=== PATIENT | female | born 1995 | race Caucasian/White ===

== ENCOUNTER 2017-10-15 14:22 | Emergency (ER) | payer MEDICAID ==
[2017-10-15] MEDS ORDERED: Sodium Chloride 0.9% 10 ML Syringe FLUSH PRN (15:29)
[2017-10-15] MEDS ORDERED: Sodium Chloride 0.9% 1,000 ML IV ONE (15:29)
[2017-10-15] MEDS ORDERED: Ondansetron 4 MG/2 ML SDV IVPUSH ONE (15:29)
[2017-10-15] MEDS ORDERED: Morphine 2 MG/ML Syringe IVPUSH ONE ×3 (15:29→17:05)
[2017-10-15] MEDS ORDERED: Sodium Chloride 0.9% 2.5 ML Syringe FLUSH PRN (15:29)
--- NOTE | 2017-10-15 15:33 | EDM.PDOC ---
ED HPI GENERAL MEDICAL PROBLEM - General Chief Complaint: Abdominal Pain Stated Complaint: ABDOMINAL PAIN Time Seen by Provider: 10/15/17 15:21 - History of Present Illness INITIAL COMMENTS - FREE TEXT/NARRATIVE: HISTORY AND PHYSICAL: History of present illness: The patient is a 22-year-old female with no GI or history and no abdominal surgical history who presents with upper abdominal pain associated with vomiting that started last evening and woke her from sleep. Patient says she had a normal day yesterday and ate at [employer] last evening she has no ill contacts. She says she was asleep when she woke with the discomfort and the nausea and has been vomiting since. Initially she had retching and now she is only vomiting small amounts of fluid. She is trying to take sips of water and cannot tolerate. She has had no diarrhea and normally has regular bowel movements. She had a temperature of 99 with the start of the symptoms but no other fever since that time and not coughing chest pain or shortness of breath. She says she has had right-sided flank and lower back pain for one week but no specific urinary complaints or hematuria. She has had no trauma to her back. Patient says she feels very thirsty but is afraid to try anything due to the retching and she has not taken any [id number] meds to help with the symptoms. Patient says she has irregular periods which is not new for her. She has not had any vomiting of bile black or bloody vomitus and no black or bloody stools recently. Review of systems: As per history of present illness and below otherwise all systems reviewed and negative. Past medical history: As per history of present illness and as reviewed below otherwise noncontributory. Surgical history: As per history of present illness and as reviewed below otherwise noncontributory. Social history: No reported history of drug or alcohol abuse. Family history: As per history of present illness and as reviewed below otherwise noncontributory. Physical exam: General: Well-developed well-nourished overweight female who is nontoxic and has small amount of fluid in emesis basin which is not black or bloody. HEENT: Atraumatic, normocephalic, pupils reactive, negative for conjunctival pallor or scleral icterus, mucous membranes tacky throat clear, neck supple, nontender, trachea midline. There is some punctate petechiae around the patient' s eyes bilaterally which she says started after the vomiting Lungs: Clear to auscultation, breath sounds equal bilaterally, chest nontender. Heart: S1S2, regular, negative for clicks, rubs, or JVD. Abdomen: Soft, nondistended, mild upper abdominal tenderness without localization right or left and there is no rebound or guarding. Bowel sounds are hypoactive Negative for masses or hepatosplenomegaly. Negative for costovertebral tenderness. Pelvis: Stable nontender. Genitourinary: Deferred. Rectal: Deferred. Extremities: Atraumatic, negative for cords or calf pain. Neurovascular unremarkable. Neuro: Awake, alert, oriented. Cranial nerves II through XII unremarkable. Cerebellum unremarkable. Motor and sensory unremarkable throughout. Exam nonfocal. Diagnostics: CBC CMP amylase lipase hCG UA urine culture CT scan of the abdomen and pelvis Therapeutics: IV, IV fluids Zofran and morphine 1720: Case was discussed with GI on-call at [facility] Dr. Barrientos as well as with the ER physician Dr. Oliveira; although they're capable of accepting this patient they do not have bed availability INR on diversion. We also have no beds available in our hospital so I will contact [facility] in [place]. I discussed the situation as well as all testing results and diagnosis with the patient and she is aware of need for transfer. 1735: Case was discussed with the hospitalist at [facility] in [place], Dr. Moreno, who accepts the patient for transfer. We will arrange for transportation. I will hang maintenance IV fluids Impression: Acute pancreatitis rule out choledocholithiasis Definitive disposition and diagnosis as appropriate pending reevaluation and review of above. Abdomen Pain Score (Numeric/FACES): 8 - Related Data Allergies Allergy/AdvReac Type Severity Reaction Status Date / Time No Known Allergies Allergy Verified 10/15/17 14:42 Home Meds: Home Meds . [No Known Home Meds] 10/15/17 [History] Past Medical History - Past Health History Medical/Surgical History: Denies Medical/Surgical History - Infectious Disease History Infectious Disease History: Reports: None Social & Family History - Family History Family Medical History: Noncontributory - Tobacco Use Smoking Status *Q: Never Smoker - Caffeine Use Caffeine Use: Reports: Coffee, Soda - Recreational Drug Use Recreational Drug Use: No ED ROS GENERAL - Review of Systems Review Of Systems: ROS reveals no pertinent complaints other than HPI. ED EXAM, GENERAL - Physical Exam Exam: See Below (See dictation) Course - Vital Signs Last Recorded V/S: Last Vital Signs Temp 36.6 C 10/15/17 14:42 Pulse 90 10/15/17 14:42 Resp 16 10/15/17 14:42 BP 125/76 10/15/17 14:42 Pulse Ox 95 10/15/17 14:42 - Orders/Labs/Meds Orders: Active Orders 24 hr Category Date Time Status Abdomen Pelvis w Cont [CT] Stat Exams 10/15/17 15:29 Taken CULTURE URINE [RM] Stat Lab 10/15/17 15:50 Received UA W/MICROSCOPIC [URIN] Stat Lab 10/15/17 15:50 Ordered Sodium Chloride 0.9% [Normal Saline] 1,000 ml Med 10/15/17 17:30 Active IV ASDIRECTED Sodium Chloride 0.9% [Saline Flush] Med 10/15/17 15:29 Active 10 ml FLUSH ASDIRECTED PRN Sodium Chloride 0.9% [Saline Flush] Med 10/15/17 15:29 Active 2.5 ml FLUSH ASDIRECTED PRN Saline Lock Insert [OM.PC] Stat Oth 10/15/17 15:28 Ordered Medication Orders Sodium Chloride (Normal Saline) 1,000 mls @ 150 mls/hr IV ASDIRECTED CARLOS Sodium Chloride (Saline Flush) 10 ml FLUSH ASDIRECTED PRN PRN Reason: Keep Vein Open Sodium Chloride (Saline Flush) 2.5 ml FLUSH ASDIRECTED PRN PRN Reason: Keep Vein Open Labs: Laboratory Tests 10/15/17 10/15/17 10/15/17 Range/Units 15:40 15:40 15:40 WBC 11.66 H (4.0-11.0) K/uL RBC 4.71 (4.30-5.90) M/uL Hgb 12.8 (12.0-16.0) g/dL Hct 39.3 (36.0-46.0) % MCV 83.4 (80.0-98.0) fL MCH 27.2 (27.0-32.0) pg MCHC 32.6 (31.0-37.0) g/dL RDW Std Deviation 41.0 (28.0-62.0) fl RDW Coeff of Nicolas 14 (11.0-15.0) % Plt Count 395 (150-400) K/uL MPV 9.60 (7.40-12.00) fL Neut % (Auto) 76.6 (48.0-80.0) % Lymph % (Auto) 15.4 L (16.0-40.0) % Power % (Auto) 7.3 (0.0-15.0) % Eos % (Auto) 0.4 (0.0-7.0) % Baso % (Auto) 0.3 (0.0-1.5) % Neut # (Auto) 8.9 H (1.4-5.7) K/uL Lymph # (Auto) 1.8 (0.6-2.4) K/uL Power # (Auto) 0.9 H (0.0-0.8) K/uL Eos # (Auto) 0.1 (0.0-0.7) K/uL Baso # (Auto) 0.0 (0.0-0.1) K/uL Nucleated RBC % 0.0 /100WBC Nucleated RBCs # 0 K/uL Sodium 138 (136-145) mmol/L Potassium 4.3 (3.5-5.1) mmol/L Chloride 104 (98-107) mmol/L Carbon Dioxide 26.0 (21.0-32.0) mmol/L BUN 13 (7.0-18.0) mg/dL Creatinine 0.8 (0.6-1.0) mg/dL Est Cr Clr Drug Dosing 102.39 mL/min Estimated GFR (MDRD) > 60.0 ml/min Glucose 135 H (74-106) mg/dL Calcium 8.9 (8.5-10.1) mg/dL Total Bilirubin 1.0 (0.2-1.0) mg/dL AST 380 H (15-37) IU/L ALT 380 H (14-63) IU/L Alkaline Phosphatase 143 H (46-116) U/L Total Protein 8.4 H (6.4-8.2) g/dL Albumin 3.7 (3.4-5.0) g/dL Globulin 4.7 H (2.0-3.5) g/dL Albumin/Globulin Ratio 0.8 L (1.3-2.8) Amylase 1817 H (25-115) U/L Lipase 00967 H (73-393) U/L HCG, Qual NEGATIVE (NEG) Urine Color Urine Appearance Urine pH (5.0-8.0) Ur Specific Pe Ell (1.001-1.035) Urine Protein (NEGATIVE) mg/dL Urine Glucose (UA) (NEGATIVE) mg/dL Urine Ketones (NEGATIVE) mg/dL Urine Occult Blood (NEGATIVE) Urine Nitrite (NEGATIVE) Urine Bilirubin (NEGATIVE) Urine Urobilinogen (<2.0) EU/dL Ur Leukocyte Esterase (NEGATIVE) Urine RBC (0-2/HPF) Urine WBC (0-5/HPF) Ur Epithelial Cells (NONE-FEW) Urine Bacteria (NEGATIVE) Urinalysis Comment Urine HCG, Qual (NEGATIVE) 10/15/17 10/15/17 Range/Units 15:50 15:50 WBC (4.0-11.0) K/uL RBC (4.30-5.90) M/uL Hgb (12.0-16.0) g/dL Hct (36.0-46.0) % MCV (80.0-98.0) fL MCH (27.0-32.0) pg MCHC (31.0-37.0) g/dL RDW Std Deviation (28.0-62.0) fl RDW Coeff of Nicolas (11.0-15.0) % Plt Count (150-400) K/uL MPV (7.40-12.00) fL Neut % (Auto) (48.0-80.0) % Lymph % (Auto) (16.0-40.0) % Power % (Auto) (0.0-15.0) % Eos % (Auto) (0.0-7.0) % Baso % (Auto) (0.0-1.5) % Neut # (Auto) (1.4-5.7) K/uL Lymph # (Auto) (0.6-2.4) K/uL Power # (Auto) (0.0-0.8) K/uL Eos # (Auto) (0.0-0.7) K/uL Baso # (Auto) (0.0-0.1) K/uL Nucleated RBC % /100WBC Nucleated RBCs # K/uL Sodium (136-145) mmol/L Potassium (3.5-5.1) mmol/L Chloride (98-107) mmol/L Carbon Dioxide (21.0-32.0) mmol/L BUN (7.0-18.0) mg/dL Creatinine (0.6-1.0) mg/dL Est Cr Clr Drug Dosing mL/min Estimated GFR (MDRD) ml/min Glucose (74-106) mg/dL Calcium (8.5-10.1) mg/dL Total Bilirubin (0.2-1.0) mg/dL AST (15-37) IU/L ALT (14-63) IU/L Alkaline Phosphatase (46-116) U/L Total Protein (6.4-8.2) g/dL Albumin (3.4-5.0) g/dL Globulin (2.0-3.5) g/dL Albumin/Globulin Ratio (1.3-2.8) Amylase (25-115) U/L Lipase (73-393) U/L HCG, Qual (NEG) Urine Color YELLOW Urine Appearance CLEAR Urine pH 5.5 (5.0-8.0) Ur Specific Pe Ell 1.020 (1.001-1.035) Urine Protein NEGATIVE (NEGATIVE) mg/dL Urine Glucose (UA) NEGATIVE (NEGATIVE) mg/dL Urine Ketones NEGATIVE (NEGATIVE) mg/dL Urine Occult Blood MODERATE (NEGATIVE) Urine Nitrite NEGATIVE (NEGATIVE) Urine Bilirubin NEGATIVE (NEGATIVE) Urine Urobilinogen 0.2 (<2.0) EU/dL Ur Leukocyte Esterase SMALL (NEGATIVE) Urine RBC 2-3 (0-2/HPF) Urine WBC 0-1 (0-5/HPF) Ur Epithelial Cells RARE (NONE-FEW) Urine Bacteria FEW (NEGATIVE) Urinalysis Comment Urine HCG, Qual NEGATIVE (NEGATIVE) Meds: Medications Generic Name Dose Route Start Last Admin Trade Name Freq PRN Reason Stop Dose Admin Sodium Chloride 1,000 mls @ 150 mls/hr 10/15/17 17:30 Normal Saline IV ASDIRECTED CARLOS Sodium Chloride 10 ml 10/15/17 15:29 Saline Flush FLUSH ASDIRECTED PRN Keep Vein Open Sodium Chloride 2.5 ml 10/15/17 15:29 Saline Flush FLUSH ASDIRECTED PRN Keep Vein Open Discontinued Medications Generic Name Dose Route Start Last Admin Trade Name Freq PRN Reason Stop Dose Admin Sodium Chloride 1,000 mls @ 999 mls/hr 10/15/17 15:29 10/15/17 15:53 Normal Saline IV 10/15/17 16:29 999 mls/hr STAT ONE Administration Iopamidol 100 ml 10/15/17 16:44 10/15/17 16:45 Isovue Multipack-370 (76%) IVPUSH 10/15/17 16:45 100 ml ONETIME STA Administration Morphine Sulfate 4 mg 10/15/17 15:29 10/15/17 15:54 Morphine IVPUSH 10/15/17 15:30 Not Given ONETIME ONE Morphine Sulfate 2 mg 10/15/17 15:37 10/15/17 15:53 Morphine IVPUSH 10/15/17 15:38 2 mg ONETIME ONE Administration Morphine Sulfate 2 mg 10/15/17 17:05 10/15/17 17:11 Morphine IVPUSH 10/15/17 17:06 2 mg ONETIME ONE Administration Ondansetron HCl 4 mg 10/15/17 15:29 10/15/17 15:52 Zofran IVPUSH 10/15/17 15:30 4 mg ONETIME ONE Administration Departure - Departure Time of Disposition: 17:41 Disposition: DC/Tfer to Acute Hospital 02 Condition: Good Clinical Impression: Acute pancreatitis Qualifiers: Pancreatitis type: biliary Acute pancreatitis complication: unspecified Qualified Code(s): K85.10 - Biliary acute pancreatitis without necrosis or infection - Discharge Information Referrals: PCP,None [Primary Care Provider] - Forms: ED Department Discharge - My Orders Last 24 Hours: My Active Orders 10/15/17 15:28 Saline Lock Insert [OM.PC] Stat 10/15/17 15:29 Abdomen Pelvis w Cont [CT] Stat Sodium Chloride 0.9% [Saline Flush] 10 ml FLUSH ASDIRECTED PRN Sodium Chloride 0.9% [Saline Flush] 2.5 ml FLUSH ASDIRECTED PRN 10/15/17 15:50 CULTURE URINE [RM] Stat UA W/MICROSCOPIC [URIN] Stat 10/15/17 17:30 Sodium Chloride 0.9% [Normal Saline] 1,000 ml IV ASDIRECTED - Assessment/Plan Last 24 Hours: My Active Orders 10/15/17 15:28 Saline Lock Insert [OM.PC] Stat 10/15/17 15:29 Abdomen Pelvis w Cont [CT] Stat Sodium Chloride 0.9% [Saline Flush] 10 ml FLUSH ASDIRECTED PRN Sodium Chloride 0.9% [Saline Flush] 2.5 ml FLUSH ASDIRECTED PRN 10/15/17 15:50 CULTURE URINE [RM] Stat UA W/MICROSCOPIC [URIN] Stat 10/15/17 17:30 Sodium Chloride 0.9% [Normal Saline] 1,000 ml IV ASDIRECTED
[2017-10-15 16:18] LABS: CHLORIDE,CL 104 mmol/L (98-107); SODIUM,NA 138 mmol/L (136-145)
[2017-10-15] MEDS ORDERED: Iopamidol 755 MG/ML 500 ML Multipack Bottle IVPUSH STA (16:44)
[2017-10-15] MEDS ORDERED: Sodium Chloride 0.9% 1,000 ML IV SCH (17:30)
--- NOTE | 2017-10-16 07:30 | CT ---
EXAM DATE: 10/15/17 PATIENT'S AGE: 22 Patient: MARY LORA Facility: [place], [place] Site . Site : 1995 Study: CT Abdomen/Pelvis WITH [id number]/[id number] 4:46:16 PM Ordering Physician: Tala Stokes Final Report: INDICATION: Right upper quadrant pain. Elevated lipase TECHNIQUE: CT abdomen and pelvis acquired with IV contrast. COMPARISON: None available FINDINGS: Lower chest: Unremarkable. Liver: Unremarkable. Spleen: Unremarkable. Pancreas: Peripancreatic stranding, edema and fluid compatible with pancreatitis. Fairly homogeneous pancreatic enhancement. No discrete peripancreatic collection. Gallbladder and bile ducts: Cholelithiasis. Apparent trace peripancreatic hypodensity could represent trace fluid. Apparent subtle ill-defined reticular densities within the CBD, as well as apparent focal enhancement along the proximal CBD wall. Adrenal glands: Unremarkable. Kidneys: No hydronephrosis. A tiny calcification along the posterior right bladder wall near the right UVJ on image 135, without ureteral dilatation. GI tract: Unremarkable. Appendix is normal. Vascular structures: Unremarkable. Lymph nodes: No abnormally enlarged lymph nodes. Shotty subcentimeter upper abdominal and mesenteric lymph nodes are nonspecific. Miscellaneous: No free air. Pelvic Organs: Unremarkable. Bones: Unremarkable for age. IMPRESSION: Acute pancreatitis. Cholelithiasis with possible trace pericholecystic fluid. Ill-defined reticular densities within the CBD could be artifactual, however choledocholithiasis is not excluded. Apparent mild enhancement along the wall of the proximal CBD. Correlate for cholangitis and recommend further evaluation with sonography and possible MRCP. A punctate calcification near the right UVJ without obstructive uropathy. Dictated by Berry Vu MD @ 10/15/2017 4:57:44 PM Please note that all CT scans at this facility use dose modulation, iterative reconstruction, and/or weight-based dosing when appropriate to reduce radiation dose to as low as reasonably achievable. Dictated by: Berry Vu MD @ 10/15/2017 16:57:57 (Electronic Signature) Report Signed by Proxy. [facility] HOSPITALCristine
== END 2017-10-15 18:30 ==
LOC: MW.ED 14:22
DX: K85.10 Biliary acute pancreatitis without necrosis or infection (principal)
CPT/HCPCS: 36415; 74177; 80053; 81001; 81025; 82150; 83690; 84703; 85025; 87086; 96361; 96374; 96375; 96376; 99285; J2270; J2405; J7040; Q9967

== ENCOUNTER 2021-07-11 06:38 | Day surgery (SDC) | payer MEDICAID ==
[~2021-07-11 06:38] MED LIST: Sodium Chloride 0.9% 10 ML Syringe FLUSH PRN; Sodium Chloride 0.9% 2.5 ML Syringe FLUSH PRN; Sodium Chloride 0.9% 20 ML SDV IV PRN
[2021-07-11] MEDS ORDERED: Lactated Ringers 1,000 ML IV SCH (06:45)
[2021-07-11] MEDS ORDERED: Midazolam 1 MG/ML 2 ML SDV ONE (06:49)
[2021-07-11] MEDS ORDERED: Propofol 200 MG/20 ML SDV ONE (06:49)
[2021-07-11] MEDS ORDERED: Ondansetron 4 MG/2 ML SDV ONE (06:49)
[2021-07-11] MEDS ORDERED: fentaNYL 250 MCG/5 ML SDV ONE (06:49)
[2021-07-11] MEDS ORDERED: Dexamethasone 4 MG/ML 5 ML MDV ONE (06:49)
[2021-07-11] MEDS ORDERED: Rocuronium Bromide 50 MG/5 ML Syringe ONE (06:50)
[2021-07-11] MEDS ORDERED: Naloxone 0.4 MG/ML SDV IVPUSH PRN (07:32)
[2021-07-11] MEDS ORDERED: fentaNYL 100 MCG/2 ML SDV IVPUSH PRN (07:32)
[2021-07-11] MEDS ORDERED: Ondansetron 4 MG/2 ML SDV IVPUSH PRN (07:32)
[2021-07-11] MEDS ORDERED: Morphine 2 MG/ML SYRINGE IVPUSH PRN (07:32)
[2021-07-11] MEDS ORDERED: HYDROmorphone 1 MG/ML Syringe IVPUSH PRN (07:32)
[2021-07-11] MEDS ORDERED: Albuterol 0.083% 2.5 MG/3 ML Neb Soln NEB PRN (07:32)
[2021-07-11] MEDS ORDERED: Metoclopramide 10 MG/2 ML SDV IVPUSH PRN (07:32)
[2021-07-11] MEDS ORDERED: Lidocaine 2% 5 ML SDV ONE (07:41)
[2021-07-11 08:11] LABS: CHLORIDE,CL 103 mmol/L (98-107); POTASSIUM,K 3.8 mmol/L (3.5-5.1); SODIUM,NA 139 mmol/L (136-145)
[2021-07-11 08:22] LABS: BLOOD UREA NITROGEN,BUN 11 mg/dL (7.0-18.0); CARBON DIOXIDE,CO2 24.3 mmol/L (21.0-32.0); ESTIMATED GFR > 60.0 ml/min; GLUCOSE RANDOM 107 mg/dL (74-106)
[2021-07-11] MEDS ORDERED: Ketorolac 30 MG/ML SDV ONE (08:55)
[2021-07-11] MEDS ORDERED: Acetaminophen/HYDROcodone 325-5 MG Tab PO PRN (09:28)
== END 2021-07-11 10:30 | disposition home or self-care (01) ==
LOC: MW.SDS 06:38
PROVIDERS: ATTEND Obstetrics & Gynecology
DX: N84.0 Polyp of corpus uteri (principal); E66.9 Obesity, unspecified; Z68.30 Body mass index [BMI] 30.0-30.9, adult; Z90.49 Acquired absence of other specified parts of digestive tract; Z79.899 Other long term (current) drug therapy; Z98.890 Other specified postprocedural states
CPT/HCPCS: 36415; 58558; 80053; 81025; 84439; 84443; 85027; 86850; 86900; 86901; J0131; J0330; J1100; J1885; J2250; J2704; J3010; J7120; 00952; J2405

== ENCOUNTER 2024-12-28 18:59 | Emergency (ER) | payer SELFPAY ==
[2024-12-28] MEDS: Amoxicillin/Clavulanate K 875-125 MG Tab PO ONE (20:14)
== END 2024-12-28 20:17 | disposition home or self-care (01) ==
LOC: MW.ED 18:59
DX: K04.7 Periapical abscess without sinus (principal); E66.9 Obesity, unspecified; Z88.8 Allergy status to other drugs, medicaments and biological substances; Z68.43 Body mass index [BMI] 50.0-59.9, adult
CPT/HCPCS: 41800; 99282; A9270; 99283